=== PATIENT | female | born 1990 | race Caucasian/White ===

== ENCOUNTER 2019-07-28 09:26 | Outpatient (CLI) | payer SELFPAY ==
--- NOTE | 2019-07-28 | XR_ITS ---
WS: [id number] RIGHT KNEE: 3 VIEW(S) TECHNIQUE: AP, oblique(s) and lateral. HISTORY: RIGHT KNEE PAIN COMPARISON: None available. No fracture or dislocation. No joint space narrowing or osteophytes. Small suprapatellar joint effusion. No soft tissue abnormality. XR/XR knee RT 3V* [id number] IMPRESSION: Small suprapatellar joint effusion.
== END 2019-07-28 09:27 | disposition home or self-care (01) ==
LOC: RADOUTREAD 12:24
PROVIDERS: Family Provider Pediatrics Adolescent Medicine; PCP Pediatrics Adolescent Medicine; Visit Provider Nurse Practitioner Family
DX: Z01.89 Encounter for other specified special examinations (principal)

== ENCOUNTER 2020-12-19 15:09 | Outpatient (CLI) | payer BC, SELFPAY ==
--- NOTE | 2020-12-19 | CT_ITS ---
WS: [id number] CT FACIAL BONES HISTORY: FACIAL ABSCESS TECHNIQUE: Images obtained from the supraorbital location through the mandible. Soft tissue and bone windows are reviewed. Coronal and sagittal reformats have also been submitted. DLP: 2146.[address] scans at [facility] use at least one of these dose optimization techniques: automat ed exposure control; mA and/or kV adjustment per patient size (includes targeted exams where dose is matched to clinical indication); or iterative reconstruction. COMPARISON: None available. There is a very minimal amount of soft tissue induration adjacent to the marker over the LEFT lateral mandible. No abscess or dental caries. This may be related to an infectious process or posttraumatic . At this time there is no abscess but there is soft tissue thickening that extends to the mandible. No osseous destruction. Globes and orbits are normal. There are small benign-appearing cervical chain lymph nodes. Largest ly mph node measures 7 mm at level Ib, LEFT. CT/CT facial bones wo con* [id number] IMPRESSION: 1. Mild soft tissue induration over the LEFT mandible in the area of concern. No abscess at this time. This could be post infectious or inflammatory or postt raumatic. 2. No dental caries is identified at this location.
== END 2020-12-19 15:10 | disposition home or self-care (01) ==
PROVIDERS: PCP Nurse Practitioner Family; Visit Provider Nurse Practitioner Family
DX: L02.01 Cutaneous abscess of face (principal)
CPT/HCPCS: 70486

== ENCOUNTER 2022-04-07 21:18 | Emergency (ER) | payer BC, SELFPAY ==
[2022-04-07 21:20] VITALS: BP 141/94; PULSE 88; RESP 18; TEMP 36.6; O2SAT 98; BMI 42.5
--- NOTE | 2022-04-07 21:20 | XRR_ITS ---
PROCEDURE INFORMATION: Exam: XR Chest Exam date and time: 04/07/2022 9:30 PM Age: 31 years old Clinical indication: Chest pressure; Patient HX: C/O chest pain; Additional info: Cp TECHNIQUE: Imaging protocol: Radiologic exam of the chest. Views: 1 view. COMPARISON: CR XR chest 2V* [id number] 07/09/2020 9:19 AM FINDINGS: Lungs: Unremarkable. No consolidation. Pleural spaces: Unremarkable. No pleural effusion. No pneumothorax. Heart/Mediastinum: Unremarkable. No cardiomegaly. Bones/joints: Unremarkable. XR/XR chest 1V portable [id number] IMPRESSION: No acute findings.
--- NOTE | 2022-04-07 21:20 | ECG_ITS ---
[facility] Test Date: 2022-04-07 Pat Name: Rabia Jordan Department: Room: Gender: Female Hull Inspector: : 1990 Requested By: Nikole Tate Order Number: [id number] Juli MD: Mariajose Gonzalez M.D. Measurements Intervals Curtice Rate: 79 P: 44 HI: 130 QRS: 82 QRSD: 106 T: 16 QT: 343 QTc: 395 Interpretive Statements SINUS RHYTHM LOW QRS VOLTAGE IN PRECORDIAL LEADS [QRS DEFLECTION < 1.0 mV IN CHEST LEADS] INCOMPLETE RIGHT BUNDLE BRANCH BLOCK [90+ ms QRS DURATION, TERMINAL R IN V1/V2, 40+ ms S IN I/aVL/V4/V5/V6] No previous ECG available for comparison Electronically Signed On 04-08-2022 12:09:12 CDT by Mariajose Gonzalez M.D. [email or web address] adult [id number] iban
[2022-04-07 21:26] VITALS: PULSE 80; RESP 13; O2SAT 98
--- NOTE | 2022-04-07 21:27 | CTR_ITS ---
PROCEDURE INFORMATION: Exam: CT Head Without Contrast Exam date and time: 04/07/2022 9:47 PM Age: 31 years old Clinical indication: Dizziness and other: General weakness; Patient HX: Dizziness with general weakness TECHNIQUE: Imaging protocol: Computed tomography of the head without contrast. Radiation optimization: All CT scans at this facility use at least one of these dose optimization techniques: automated exposure control; mA and/or kV adjustment per patient size (includes targeted exams where dose is matched to clinical indication); or iterative reconstruction. COMPARISON: CT facial bones wo con* [id number] 12/19/2020 3:18 PM RADIATION DOSE METRICS: Total DLP (mGy-cm): 1019.18 FINDINGS: Brain: No cerebral/cerebellar infarct. No brain parenchymal or extra-axial hemorrhage. Cerebral ventricles: No ventriculomegaly. Paranasal sinuses: Paranasal sinuses are clear. No air-fluid level. Mastoid air cells: Visualized mastoid air cells are clear. Bones/joints: No calvarial or skull base fracture. Soft tissues: Unremarkable. CT/CT head wo con* [id number] IMPRESSION: 1. No acute infarct or hemorrhage. 2. No calvarial or skull base fracture.
--- NOTE | 2022-04-07 21:29 | W.ED.CHESTPA ---
HPI - Chest Pain General: Chief Complaint: Chest Pain Stated Complaint: cp Time Seen by Provider: 04/07/22 21:21 Source: patient and EMS Mode of arrival: EMS Limitations: no limitations History of Present Illness: 31-year-old female states that roughly an hour ago she started having palpitations she is feeling lightheaded and having sharp chest pains in the right side of her chest. She states that she also had feeling like she may pass out states her symptoms have improved. She denies any cough or fever denies any worsening improving factors. States she started taking phentermine roughly 3 to 4 weeks ago. Associated symptoms: Deny abdominal pain, dyspnea, fever(s), nausea or vomiting Review of Systems Const: Denies: fever(s), chills, body aches or change in appetite Eyes: Denies: blurry vision or eye discomfort ENMT: Denies: throat pain or dental pain Card: Reports: chest pain and pre-syncope Resp: Denies: dyspnea GI: Denies: abdominal pain, nausea, vomiting or diarrhea : Denies: dysuria Musc: Denies: neck pain or back pain Skin/Breast: Denies: rash Neuro: Denies: headache(s) Psych: Denies: depression Anish/Lymph: Denies: easy bruising All/Imm: Denies: urticaria PFSH ED PFSH: Medical History (Updated 04/07/22 @ 22:51 by Nikole Tate MD) No pertinent past medical history Social History (Updated 04/07/22 @ 21:31 by Nikole Tate MD) Substance/Drug Use: never Physical Exam Const: COMMON NORMALS: no acute distress, patient oriented x3 and healthy appearing HENMT: COMMON NORMALS: normocephalic and atraumatic HEAD & SCALP: normocephalic and atraumatic Eye: COMMON NORMALS: Equal, round and reactive pupils present and EOMs intact bilaterally PUPIL: Yes Equal, round and reactive pupils present Neck/C-Spine: COMMON NORMALS: full ROM and supple Chest: COMMONS NORMALS: normal inspection of the chest and normal palpation of entire chest wall Resp: COMMON NORMALS: normal respiratory effort, No retractions, No use of accessory muscles and clear to auscultation bilaterally AUSCULTATION: clear to auscultation bilaterally Cardio: COMMON NORMALS: regular rate, regular rhythm and No murmurs present (Cardio) RATE: regular rate RHYTHM: regular rhythm GI: COMMON NORMALS: Normal to inspection, nondistended, normoactive bowel sounds present, Soft to palpation, non-tender and no masses PALPATION: Yes Soft to palpation Extremity: COMMON NORMALS: normal to inspection and full ROM Neuro: COMMON NORMALS: patient oriented x3, moves all extremities and no focal motor deficits Psych: COMMON NORMALS: mental status grossly normal, Normal thought process present and cooperative THOUGHT PROCESS: Normal thought process present Skin: COMMON NORMALS: no rashes or lesions noted and no wounds GENERAL SKIN EXAM: no rashes or lesions noted Course Vital Signs: Vital signs: Vital Signs Temperature 97.9 F 04/07/22 21:20 Pulse Rate 92 04/07/22 22:15 Respiratory Rate 18 04/07/22 22:15 Blood Pressure 130/83 04/07/22 22:15 Pulse Oximetry 98 04/07/22 22:15 Oxygen Delivery Me thod 04/07/22 22:15 MDM - Chest Pain Medical Decision Making Patient presents here with chest pain along with some near syncope she is well-appearing here this could be anxiety could be from her phentermine her troponin is normal she is stable for discharge she is to follow-up with PCP and return if worsening she understands agrees plan. Lab Data : 04/07/22 21:27 04/07/22 21:27 Radiology Impressions Chest X-Ray 04/07/22 21:20 IMPRESSION: No acute findings. Head CT 04/07/22 21:27 IMPRESSION: 1. No acute infarct or hemorrhage. 2. No calvarial or skull base fracture. Laboratory Results WBC 10.8 10^3/uL (4.0-10.0) H 04/07/22 21: RBC 4.54 10^6/uL (4.1-5.3) 04/07/22 21: Hgb 13.7 g/dL (11.5-15.3) 04/07/22: Hct 41.7 % (37.0-47.0) 04/07/22 21: MCV 91.9 fl (81-99) 04/07/22 21: MCH 30.2 pg (28.0-34.0) 04/07/22 21: MCHC 32.9 g/dL (30.0-36.0) 04/07/22: RDW 11.9 % (12.1-15.1) L 04/07/22: Plt Count 311 10^3/cmm (130-400) 04/07/22: MPV 9.2 fL (7.4-10.4) 04/07/22: Neut % (Auto) 61.7 % 04/07/22: Lymph % (Auto) 27.5 % 04/07/22: Roosevelt % (Auto) 8.7 % 04/07/22: Eos % (Auto) 1.4 % 04/07/22: Baso % (Auto) 0.5 % 04/07/22 Neut # (Auto) 6.64 10^3/uL (1.8-7.7) 04/07/22: Lymph # (Auto) 3.0 10^3/uL (0.8-4.8) 04/07/22: Roosevelt # (Auto) 0.9 10^3/uL (0.2-0.9) 04/07/22: Eos # (Auto) 0.2 10^3/uL (0.0-0.8) 04/07/22: Baso # (Auto) 0.1 10^3/uL (0.0-0.1) 04/07/22: Nucleated RBC % (auto) 0 % 04/07/22: Nucleated RBCs # 0.0 /100WBC 04/07/22: Sodium 138 mmol/L (136-145) 04/07/22: Potassium 4.0 mmol/L (3.5-5.1) 04/07/22: Chloride 100 mmol/L (98-107) 04/07/22: Carbon Dioxide 26 mmol/L (22-29) 04/07/22: Anion Gap 16.0 (5-19) 04/07/22: BUN 12 mg/dL (6-20) 04/07/22: Creatinine 0.8 mg/dL (0.5-0.9) 04/07/22: GFR Calculation 84.2 mL/min (90-130) L 04/07/22 21:27 Glucose 88 mg/dL (65-115) 04/07/22 21:27 Calculated Osmolality 285 mOsm/kg (285-295) 04/07/22 21:27 Calcium 9.7 mg/dL (8.5-10.5) 04/07/22 21:27 Total Bilirubin 0.4 mg/dL (0.15-1.2) 04/07/22 21:27 AST 21 U/L (0-32) 04/07/22 21:27 ALT 28 U/L (0-33) 04/07/22 21:27 Alkaline Phosphatase 51 U/L (35-105) 04/07/22 21:27 Troponin T Baseline 6 ng/L (0-10) 04/07/22 21:27 Total Protein 7.9 g/dL (6.6-8.7) 04/07/22 21:27 Albumin 4.3 g/dL (3.5-5.2) 04/07/22 21:27 Globulin 3.6 g/dL (1.3-4.6) 04/07/22 21:27 HCG, Qual Negative (Negative) 04/07/22 21:38 EKG Data EKG 1: I personally reviewed and interpreted this EKG as follows: EKG interpretation date: 04/07/22 EKG interpretation time: 21:29 Interpretation: nsr hr [address] or t wave abnormalities qrs 106 qtc 378 Discharge Plan Discharge Patient Disposition: Home Clinical Impression: Chest pain Condition: Stable Discharge Orders: Discharge ED (Routine); Ordered 04/07/22 Ordered By: Nikole Tate Referrals: Brie Rivers FNP [Primary Care Provider] - Discharge Diet: Advance as tolerated Discharge Activity: Resume usual activity Patient Instructions: Chest Pain (ED) Coding Level of Care Code ED Senior Auditor for Chg Fwd Exam Comprehensive
[2022-04-07 21:32] LABS: Basophils # 0.1 10^3/uL (0.0-0.1); Basophils % 0.5 %; Eosinophils # 0.2 10^3/uL (0.0-0.8); Eosinophils % 1.4 %; Hematocrit 41.7 % (37.0-47.0); Hemoglobin 13.7 g/dL (11.5-15.3); Lymphocytes % 27.5 %; Mean Corpuscular HGB Conc 32.9 g/dL (30.0-36.0); Mean Corpuscular Hemoglobin 30.2 pg (28.0-34.0); Mean Corpuscular Volume 91.9 fl (81-99); Mean Platelet Volume 9.2 fL (7.4-10.4); Monocytes # 0.9 10^3/uL (0.2-0.9); Monocytes % 8.7 %; Neutrophils # 6.64 10^3/uL (1.8-7.7); Neutrophils % 61.7 %; Nucleated Red Blood Cells % 0 %; Platelet Count 311 10^3/cmm (130-400); Red Blood Count 4.54 10^6/uL (4.1-5.3); Red Cell Distribution Width 11.9 % (12.1-15.1); White Blood Count 10.8 10^3/uL (4.0-10.0)
[2022-04-07] MEDS: ALPRAZolam 0.5 mg Tablet 1 MG PO (21:36)
[2022-04-07 22:14] LABS: Alanine Aminotransferase 28 U/L (0-33); Albumin Level 4.3 g/dL (3.5-5.2); Alkaline Phosphatase 51 U/L (35-105); Aspartate Amino Transferase 21 U/L (0-32); Blood Urea Nitrogen 12 mg/dL (6-20); Calcium 9.7 mg/dL (8.5-10.5); Carbon Dioxide 26 mmol/L (22-29); Chloride 100 mmol/L (98-107); Globulin 3.6 g/dL (1.3-4.6); Glomerular Filtration Rate 84.2 mL/min (90-130); Glucose 88 mg/dL (65-115); Osmolality Calculated 285 mOsm/kg (285-295); Sodium 138 mmol/L (136-145); Total Bilirubin 0.4 mg/dL (0.15-1.2); Total Protein 7.9 g/dL (6.6-8.7)
[2022-04-07 22:15] VITALS: BP 130/83; PULSE 92; RESP 18; O2SAT 98
[2022-04-07 22:15] LABS: Troponin(5th) Baseline 6 ng/L (0-10)
[2022-04-07 22:40] LABS: HCG Qualitative Urine. Negative (Negative)
[2022-04-07 23:09] VITALS: BP 130/84; PULSE 80; RESP 16; O2SAT 96
== END 2022-04-07 23:10 | disposition home or self-care (01) ==
PROVIDERS: Emergency Provider Emergency Medicine; PCP Nurse Practitioner Family
DX: R07.9 Chest pain, unspecified (principal)
CPT/HCPCS: 70450; 71045; 80053; 81025; 84484; 85025; 93005; 99285

== ENCOUNTER → 2023-06-23 12:26 | Outpatient (BNVA) | payer BC, SELFPAY | PROVIDERS: PCP Nurse Practitioner Family; Visit Provider Nurse Practitioner | DX: J06.9 Acute upper respiratory infection, unspecified (principal); H66.001 Acute suppurative otitis media without spontaneous rupture of ear drum, right ear | CPT/HCPCS: 87400 ==

== ENCOUNTER → 2024-04-04 10:17 | Outpatient (BNVA) | payer BC, SELFPAY | PROVIDERS: PCP Registered Nurse; Visit Provider Registered Nurse | DX: F32.A Depression, unspecified (principal); R53.83 Other fatigue | CPT/HCPCS: 80053; 82306; 82607; 84403; 84443; 85025; 86376; 86800 ==

== ENCOUNTER → 2024-09-05 14:23 | Outpatient (BNVA) | payer BC, SELFPAY | PROVIDERS: PCP Registered Nurse; Visit Provider Registered Nurse | DX: J02.0 Streptococcal pharyngitis (principal) | CPT/HCPCS: 87880 ==

== ENCOUNTER → 2024-11-02 15:33 | Outpatient (BNVA) | payer BC, SELFPAY | PROVIDERS: PCP Registered Nurse; Visit Provider Nurse Practitioner | DX: Z20.2 Contact with and (suspected) exposure to infections with a predominantly sexual mode of transmission (principal) | CPT/HCPCS: 80074; 81513; 86592; 86695; 86696; 87481; 87491; 87591; 87661; 87806 ==

== ENCOUNTER → 2024-12-10 | Outpatient (BNVA) | payer BC, SELFPAY | PROVIDERS: PCP Registered Nurse; Visit Provider Emergency Medicine | DX: R06.89 Other abnormalities of breathing (principal) | CPT/HCPCS: 71045 ==

== ENCOUNTER → 2024-12-17 14:46 | Outpatient (BNVA) | payer BC, SELFPAY | PROVIDERS: PCP Registered Nurse; Visit Provider Nurse Practitioner | DX: L02.91 Cutaneous abscess, unspecified (principal) | CPT/HCPCS: 87070 ==

== ENCOUNTER → 2025-03-27 16:14 | Outpatient (BNVA) | payer BC, SELFPAY | PROVIDERS: PCP Registered Nurse; Visit Provider Registered Nurse | DX: E66.9 Obesity, unspecified (principal) | CPT/HCPCS: 80053; 82607; 84403 ==